=== PATIENT | male | born 1985 | race Hispanic/Latino ===

== ENCOUNTER 2017-09-17 06:00 | Day surgery (SDC) | payer MEDICAID ==
[~2017-09-17] VITALS: Ht 162.6 cm; Wt 63.6 kg
[~2017-09-17 06:00] MED LIST: ALLO100T PO; FOLI1TAB15 PO; LACT10SO PO; LEVO25TA9 PO; MULT-1296 PO; NADO20TA12 PO; OSCD250 PO
[2017-09-17 06:31] VITALS: BP 103/51
[2017-09-17] MEDS ORDERED: SODIUM CHLORIDE 0.9% 1000ML 1,000 ML IV ONE (06:37)
== END 2017-09-17 08:20 | disposition home or self-care (01) ==
LOC: ENDO 06:00 → DAH 06:00 → ENDO 08:20
PROVIDERS: ATTEND Internal Medicine
DX: I85.00 Esophageal varices without bleeding (principal); K29.60 Other gastritis without bleeding; K64.8 Other hemorrhoids; K74.60 Unspecified cirrhosis of liver; E03.9 Hypothyroidism, unspecified; M10.9 Gout, unspecified; Q90.9 Down syndrome, unspecified; B19.20 Unspecified viral hepatitis C without hepatic coma; E03.8 Other specified hypothyroidism; R01.1 Cardiac murmur, unspecified; Z79.899 Other long term (current) drug therapy; Z98.890 Other specified postprocedural states
CPT/HCPCS: 43239; 88305; 88342; A4606 ×2; J7030

== ENCOUNTER 2019-09-21 06:41 | Day surgery (SDC) | payer MEDICAID ==
[~2019-09-21] VITALS: Ht 160 cm; Wt 69.9 kg
[~2019-09-21 06:41] MED LIST changes: +SODIUM CHLORIDE 0.9% 1000ML 1,000 ML IV ONE
[2019-09-21 08:40] VITALS: BP 110/81
[2019-09-21] MEDS ORDERED: PROPOFOL 10 MG/ML 20ML VIAL IV ONE (09:08)
[2019-09-21 09:18] VITALS: BP 99/54
[2019-09-21 09:23] VITALS: BP 108/80
[2019-09-21 09:28] VITALS: BP 102/78
== END 2019-09-21 10:35 | disposition home or self-care (01) ==
LOC: ENDO 06:41 → DAH 06:41 → ENDO 10:35
PROVIDERS: ATTEND Internal Medicine
DX: K74.60 Unspecified cirrhosis of liver (principal); I85.10 Secondary esophageal varices without bleeding; K31.89 Other diseases of stomach and duodenum; Q90.9 Down syndrome, unspecified; E03.9 Hypothyroidism, unspecified; M10.9 Gout, unspecified; Z90.89 Acquired absence of other organs; Z79.899 Other long term (current) drug therapy
CPT/HCPCS: 43239; A4606; J2704; J7030